=== PATIENT | male | born 1970 | race American Indian/Alaskan Native ===

== ENCOUNTER 2025-03-27 09:37 | Observation (INO) ==
[2025-03-27] MEDS ORDERED: IOPAMIDOL 100 ML BOTTLE IV ONE (09:38)
[2025-03-27] MEDS: ONDANSETRON 4 MG/2 ML VIAL IV ONE (10:08)
[2025-03-27 10:23] LABS: Basophils # (Auto) 0 K/mcL (0.00-0.30); Basophils % (Auto) 0 % (0.0-2.0); Eosinophils # (Auto) 0 K/mcL (0.00-0.70); Eosinophils % (Auto) 0 % (0.0-7.0); Hematocrit 47.8 % (40.1-51.0); Hemoglobin 16.3 g/dL (13.7-17.5); Lymphocytes # (Auto) 0.46 K/mcL (1.50-4.80); Lymphocytes % (Auto) 3.7 % (15.5-49.0); Mean Corpuscular HGB Conc 34.1 g/dL (31.0-36.0); Monocytes # (Auto) 0.71 K/mcL (0.10-0.90); Monocytes % (Auto) 5.7 % (1.0-12.0); Neutrophils % (Auto) 90.4 % (38.0-78.0); Platelet Count 279 K/mcL (140-440); RBC 5.25 M/mcL (4.63-6.08); WBC 12.5 K/mcL (4.5-11.0)
[2025-03-27 10:35] LABS: INR 0.9 (0.9-1.1); Prothrombin Time 12.9 sec (11.9-14.5)
[2025-03-27] MEDS: PANTOPRAZOLE 40 MG VIAL IV ONE (10:46)
[2025-03-27 11:11] LABS: ALT/SGPT 24 U/L (<40); AST/SGOT 21 U/L (<40); Albumin 4.3 gm/dL (3.2-5.2); Albumin/Globulin Ratio 1.3 (1.0-2.3); Alkaline Phosphatase 95 U/L (39-117); Anion Gap 17.0 (8.0-16.0); Bilirubin,Total 0.4 mg/dL (0.1-1.0); Blood Urea Nitrogen 7 mg/dL (6-20); Calcium 9.7 mg/dL (8.6-10.4); Carbon Dioxide 21 mmol/L (22-30); Chloride 99 mmol/L (96-108); Globulin 3.3 gm/dL (2.2-3.7); Glucose 137 mg/dL (70-105); Potassium 3.5 mmol/L (3.3-5.1); Sodium 137 mmol/L (133-145)
[2025-03-27] MEDS: 0.9 % SODIUM CHLORIDE 100 ML IV ONE (13:02)
[2025-03-27] MEDS: AMPICILLIN SODIUM/SULBACTAM NA 3 GM in 0.9 % SODIUM CHLORIDE 100 ML IV SCH (13:22)
[2025-03-27] MEDS: ACETAMINOPHEN 1,000 MG/100 ML BAG IV ONE ×2 (13:52→19:21)
[2025-03-27 14:48] LABS: Basophils # (Auto) 0.01 K/mcL (0.00-0.30); Basophils % (Auto) 0.1 % (0.0-2.0); Eosinophils # (Auto) 0 K/mcL (0.00-0.70); Eosinophils % (Auto) 0 % (0.0-7.0); Hematocrit 50.5 % (40.1-51.0); Hemoglobin 16.8 g/dL (13.7-17.5); Lymphocytes # (Auto) 0.32 K/mcL (1.50-4.80); Lymphocytes % (Auto) 2.4 % (15.5-49.0); Mean Corpuscular HGB Conc 33.3 g/dL (31.0-36.0); Monocytes # (Auto) 1.07 K/mcL (0.10-0.90); Monocytes % (Auto) 8.1 % (1.0-12.0); Neutrophils % (Auto) 89.1 % (38.0-78.0); Platelet Count 263 K/mcL (140-440); RBC 5.40 M/mcL (4.63-6.08); WBC 13.2 K/mcL (4.5-11.0)
[2025-03-27] MEDS ORDERED: PROPOFOL 200 MG/20 ML VIAL IV ONE (14:48)
[2025-03-27] MEDS ORDERED: fentaNYL 100 MCG/2 ML VIAL ONE ×2 (14:48→16:18)
[2025-03-27] MEDS ORDERED: MIDAZOLAM 2 MG/2 ML VIAL ONE (14:48)
[2025-03-27] MEDS ORDERED: SUCCINYLCHOLINE 200 MG/10 ML VIAL IV ONE (14:50)
[2025-03-27] MEDS ORDERED: ROCURONIUM 10 MG/ML ML IV ONE ×2 (14:50→15:52)
[2025-03-27] MEDS ORDERED: DEXAMETHASONE 10 MG/ML VIAL ONE (14:50)
[2025-03-27] MEDS ORDERED: GLYCOPYRROLATE 0.2 MG/ML VIAL IV ONE (14:50)
[2025-03-27] MEDS ORDERED: LIDOCAINE 2% PF 5 ML VIAL ONE (14:50)
[2025-03-27] MEDS ORDERED: ONDANSETRON 4 MG/2 ML VIAL ONE (14:50)
[2025-03-27] MEDS ORDERED: MAGNESIUM SULFATE 2 GM/50 ML BAG IV ONE (14:51)
[2025-03-27] MEDS: VANCOMYCIN 1,500 MG in 0.9 % SODIUM CHLORIDE 500 ML IV SCH (15:10)
[2025-03-27] MEDS: VANCOMYCIN PER PHARMACY IV ONE (15:10)
[2025-03-27] MEDS ORDERED: IPRATROPIUM/ALBUTEROL 3 ML AMPUL.NEB NEB PRN ×2 (15:39→17:47)
[2025-03-27] MEDS ORDERED: HYDROmorphone 0.5 MG/0.5 ML SYRINGE IV PRN (15:39)
[2025-03-27] MEDS ORDERED: DROPERIDOL 5 MG/2 ML VIAL IV PRN (15:39)
[2025-03-27] MEDS ORDERED: fentaNYL 100 MCG/2 ML VIAL IV PRN (15:39)
[2025-03-27] MEDS ORDERED: ONDANSETRON 4 MG/2 ML VIAL IV PRN ×3 (15:39→18:27)
[2025-03-27] MEDS ORDERED: HYDROmorphone 0.5 MG/0.5 ML SYRINGE ONE ×2 (15:50→17:24)
[2025-03-27] MEDS ORDERED: NALOXONE HCL 0.4 MG/ML VIAL IV PRN (17:47)
[2025-03-27] MEDS ORDERED: MEPERIDINE 25 MG/ML VIAL IV PRN (17:47)
[2025-03-27] MEDS ORDERED: LACTATED RINGERS 250 ML IV PRN (17:47)
[2025-03-27] MEDS ORDERED: diphenhydrAMINE 50 MG/ML VIAL IV PRN (17:47)
[2025-03-27] MEDS ORDERED: SUGAMMADEX SODIUM 200 MG/2 ML VIAL IV ONE (17:48)
[2025-03-27] MEDS ORDERED: TRANEXAMIC ACID 1,000 MG/10 ML VIAL ONE (17:51)
[2025-03-27] MEDS: BUPIVACAINE W/EPI 0.25% 50 ML VIAL IJ ONE (17:52)
[2025-03-27] MEDS: fentaNYL 100 MCG/2 ML VIAL IV PRN (18:21)
[2025-03-27] MEDS: METHOCARBAMOL 1,000 MG/10 ML VIAL IV PRN (18:21)
[2025-03-27] MEDS: LACTATED RINGERS 1,000 ML IV SCH ×2 (19:09→19:28)
[2025-03-27] MEDS: DEXTROSE 5%-LR 1,000 ML IV SCH (19:28)
[2025-03-27] MEDS: PIPERACILLIN SODIUM/TAZOBACTAM 4.5 GM in DEXTROSE 5% IN WATER 50 ML IV SCH (20:26)
[2025-03-27] MEDS: HYDROmorphone 0.5 MG/0.5 ML SYRINGE IV PRN (20:35)
[2025-03-27] MEDS: ACETAMINOPHEN 650 MG/65 ML BAG IV PRN (22:17)
[2025-03-28] MEDS: PIPERACILLIN SODIUM/TAZOBACTAM 4.5 GM in DEXTROSE 5% IN WATER 100 ML IV SCH (00:03)
[2025-03-28 06:13] LABS: Hematocrit 44.6 % (40.1-51.0); Hemoglobin 14.7 g/dL (13.7-17.5); Mean Corpuscular HGB Conc 33.0 g/dL (31.0-36.0); Platelet Count 217 K/mcL (140-440); RBC 4.78 M/mcL (4.63-6.08); WBC 11.6 K/mcL (4.5-11.0)
[2025-03-28] MEDS ORDERED: ALBUTEROL SULFATE 60 PUFF INHALER INH PRN (12:47)
[2025-03-28] MEDS: NORTRIPTYLINE 10 MG CAPSULE PO SCH (20:05)
[2025-03-29 07:03] LABS: Hematocrit 40.3 % (40.1-51.0); Hemoglobin 13.3 g/dL (13.7-17.5); Mean Corpuscular HGB Conc 33.0 g/dL (31.0-36.0); Platelet Count 180 K/mcL (140-440); RBC 4.27 M/mcL (4.63-6.08); WBC 10.8 K/mcL (4.5-11.0)
[2025-03-29 07:33] LABS: ALT/SGPT 24 U/L (<40); AST/SGOT 19 U/L (<40); Albumin 2.9 gm/dL (3.2-5.2); Albumin/Globulin Ratio 1.1 (1.0-2.3); Alkaline Phosphatase 64 U/L (39-117); Anion Gap 9.0 (8.0-16.0); Bilirubin,Total 0.5 mg/dL (0.1-1.0); Blood Urea Nitrogen 8 mg/dL (6-20); Calcium 8.4 mg/dL (8.6-10.4); Carbon Dioxide 24 mmol/L (22-30); Chloride 102 mmol/L (96-108); Globulin 2.6 gm/dL (2.2-3.7); Glucose 113 mg/dL (70-105); Potassium 3.4 mmol/L (3.3-5.1); Sodium 135 mmol/L (133-145)
[2025-03-29] MEDS: LEVOTHYROXINE 50 MCG TABLET PO SCH (07:50)
[2025-03-29] MEDS: FLUTICASONE FUROATE VILANTEROL INH SCH (09:47)
[2025-03-29] MEDS: PANTOPRAZOLE 40 MG TABLET PO SCH (13:26)
[2025-03-29] MEDS: KETOROLAC 15 MG/ML VIAL IV SCH (13:34)
[2025-03-29] MEDS: BISACODYL 10 MG SUPP.RECT PR SCH (17:48)
[2025-03-30 06:41] LABS: Hematocrit 37.3 % (40.1-51.0); Hemoglobin 12.3 g/dL (13.7-17.5); Mean Corpuscular HGB Conc 33.0 g/dL (31.0-36.0); Platelet Count 193 K/mcL (140-440); RBC 4.00 M/mcL (4.63-6.08); WBC 7.8 K/mcL (4.5-11.0)
[2025-03-30 07:21] LABS: Anion Gap 11.0 (8.0-16.0); Blood Urea Nitrogen 8 mg/dL (6-20); Calcium 8.4 mg/dL (8.6-10.4); Carbon Dioxide 24 mmol/L (22-30); Chloride 101 mmol/L (96-108); Glucose 107 mg/dL (70-105); Potassium 3.1 mmol/L (3.3-5.1); Sodium 136 mmol/L (133-145)
[2025-03-30] MEDS: KETOROLAC 15 MG/ML VIAL IV SCH (22:39)
[2025-03-31 07:51] LABS: Anion Gap 10.0 (8.0-16.0); Blood Urea Nitrogen 5 mg/dL (6-20); Calcium 8.4 mg/dL (8.6-10.4); Carbon Dioxide 25 mmol/L (22-30); Chloride 103 mmol/L (96-108); Glucose 105 mg/dL (70-105); Potassium 2.9 mmol/L (3.3-5.1); Sodium 138 mmol/L (133-145)
[2025-03-31 10:06] LABS: ALT/SGPT 14 U/L (<40); AST/SGOT 12 U/L (<40); Albumin 2.7 gm/dL (3.2-5.2); Albumin/Globulin Ratio 1.0 (1.0-2.3); Alkaline Phosphatase 67 U/L (39-117); Anion Gap 11.0 (8.0-16.0); Bilirubin,Total 0.4 mg/dL (0.1-1.0); Blood Urea Nitrogen 5 mg/dL (6-20); Calcium 8.5 mg/dL (8.6-10.4); Carbon Dioxide 24 mmol/L (22-30); Chloride 103 mmol/L (96-108); Globulin 2.7 gm/dL (2.2-3.7); Glucose 102 mg/dL (70-105); Potassium 3.1 mmol/L (3.3-5.1); Sodium 138 mmol/L (133-145)
[2025-03-31] MEDS: DEXTROSE 5%-LR 1,000 ML IV SCH (10:33)
[2025-03-31] MEDS: POTASSIUM CHLORIDE 10 MEQ/100 ML BAG IV SCH (10:33)
[2025-03-31] MEDS: POTASSIUM CHLORIDE 20 MEQ in DEXTROSE 5% IN WATER 250 ML IV ONE (10:41)
[2025-04-01 06:06] LABS: Hematocrit 36.3 % (40.1-51.0); Hemoglobin 12.1 g/dL (13.7-17.5); Mean Corpuscular HGB Conc 33.3 g/dL (31.0-36.0); Platelet Count 209 K/mcL (140-440); RBC 3.93 M/mcL (4.63-6.08); WBC 4.1 K/mcL (4.5-11.0)
[2025-04-01 06:23] LABS: ALT/SGPT 12 U/L (<40); AST/SGOT 12 U/L (<40); Albumin 2.9 gm/dL (3.2-5.2); Albumin/Globulin Ratio 1.1 (1.0-2.3); Alkaline Phosphatase 65 U/L (39-117); Anion Gap 9.0 (8.0-16.0); Bilirubin,Total 0.4 mg/dL (0.1-1.0); Blood Urea Nitrogen 4 mg/dL (6-20); Calcium 8.5 mg/dL (8.6-10.4); Carbon Dioxide 26 mmol/L (22-30); Chloride 104 mmol/L (96-108); Globulin 2.7 gm/dL (2.2-3.7); Glucose 95 mg/dL (70-105); Potassium 3.1 mmol/L (3.3-5.1); Sodium 139 mmol/L (133-145)
[2025-04-01 11:12] VITALS: TEMP 98; O2SAT 96
== END 2025-04-01 11:00 | disposition home or self-care (01) ==
LOC: ED 09:37 → MEDSUR 14:34 → SUR 14:34 → MEDSUR 18:41
PROVIDERS: ADMIT Surgery Surgical Critical Care; ATTEND Surgery Surgical Critical Care